=== PATIENT | female | born 1985 | race Caucasian/White ===

== ENCOUNTER 2016-05-24 19:48 | Emergency (ER) | payer OTHER ==
[~2016-05-24] VITALS: Ht 167.6 cm; Wt 72.7 kg
[2016-05-24 19:50] VITALS: BP 125/77; TEMP 98.3
[2016-05-24 20:37] LABS: PH 5 (5-8); SQUAMOUS EPITHELIAL 0-2 /hpf; URINE APPEARANCE Clear; URINE BACTERIA Rare /hpf; URINE BILIRUBIN Negative (NEGATIVE); URINE BLOOD Negative (NEGATIVE); URINE COLOR Yellow; URINE GLUCOSE Negative (NEGATIVE); URINE KETONE Negative (NEGATIVE); URINE RBC 0-2 /hpf; URINE UROBILINOGEN Negative (NEGATIVE); URINE WBC 0-2 /hpf
[2016-05-24 21:09] LABS: BASO % 0.4 % (0.0-2.0); GRAN # 2.9 (1.4-6.5); GRAN % 53.1 % (42.2-75.2); HEMATOCRIT 37.4 % (37.0-47.0); HEMOGLOBIN 12.7 g/dl (12.5-16.0); LYMPH # 2.2 (1.2-3.4); LYMPH % 39.4 % (20.0-51.0); MEAN CELL VOLUME 83 fl (80.0-100.0); MEAN CORPUSCULAR HEMOGLOBIN 28 pg (27.0-31.0); MEAN CORPUSCULAR HGB CONC 34 g/dl (33.0-37.0); MEAN PLATELET VOLUME 10.9 fl (7.4-10.4); MONO # 0.4 (0.1-0.6); MONO % 6.9 % (1.7-9.3); PLATELET COUNT 240 K/mm3 (130-400); RED BLOOD COUNT 4.49 M/mm3 (4.10-5.30); REDCELL DISTRIBUTION WIDTH-CV 12.8 % (11.5-14.5); WHITE BLOOD COUNT 5.5 K/mm3 (4.8-10.8)
[2016-05-24 21:24] LABS: ADJUSTED CALCIUM 9.2 mg/dL (8.4-10.2); ALANINE AMINOTRANSFERASE 36 U/L (9-52); ALBUMIN 4.4 gm/dL (3.5-5.0); ALKALINE PHOSPHATASE 52 U/L (50-136); ANION GAP 11 mmol/L (7-16); BILIRUBIN,TOTAL 0.9 mg/dL (0.0-1.0); BLOOD UREA NITROGEN 15 mg/dL (7-17); CALCIUM 9.5 mg/dL (8.4-10.2); CARBON DIOXIDE 27 mmol/L (22-30); CHLORIDE 102 mmol/L (98-107); CREATININE, serum 0.83 mg/dL (0.52-1.25); GLUCOSE 94 mg/dL (74-106); LIPASE 89 U/L (23-300); POTASSIUM 3.8 mmol/L (3.4-5.0); SODIUM 140 mmol/L (137-145); TOTAL PROTEIN 7.5 gm/dL (6.4-8.2)
[2016-05-24 21:30] LABS: C-REACTIVE PROTEIN < 0.5 mg/dL (0.0-0.9)
[2016-05-24] MEDS ORDERED: NORCO 325 MG-51 TAB PO (21:56)
[2016-05-24 22:00] VITALS: PULSE 68
== END 2016-05-24 22:00 | disposition home or self-care (01) ==
LOC: COL.ER 19:48
PROVIDERS: Nurse Practitioner
DX: R10.11 Right upper quadrant pain (principal)
CPT/HCPCS: J1885; J2405; J7030

== ENCOUNTER 2016-07-31 09:07 | Day surgery (SDC) | payer OTHER ==
[~2016-07-31] VITALS: Ht 170.2 cm; Wt 73.9 kg
[~2016-07-31 09:07] MED LIST: NORCO 325 MG-51 TAB PO
[2016-07-31 09:43] VITALS: BP 120/81; PULSE 73; TEMP 98.2
[2016-07-31] MEDS ORDERED: ZOFRAN ODT4 MG PO (12:40)
[2016-07-31] MEDS ORDERED: NORCO 325 MG-51 TAB PO (12:40)
[2016-07-31] MEDS ORDERED: COLACE 100100 MG/CAP PO (12:40)
[2016-07-31] MEDS ORDERED: MOTRIN 600600 MG/TAB PO (12:41)
[2016-07-31 13:05] VITALS: BP 103/81; PULSE 58; TEMP 97.9
[2016-07-31 13:20] VITALS: BP 115/73; PULSE 62
[2016-07-31 13:35] VITALS: BP 117/62; PULSE 65
[2016-07-31 13:50] VITALS: BP 108/64; PULSE 63
[2016-07-31 14:05] VITALS: BP 106/60; PULSE 89
== END 2016-07-31 15:17 | disposition home or self-care (01) ==
LOC: SDCO 09:07
DX: K81.1 Chronic cholecystitis (principal)
CPT/HCPCS: J0694; J1100; J1170; J1885; J2270; J2405; J2550; J2704; J2710; J3010; J7030; Q9967